=== PATIENT | male | born 1930 | race Caucasian/White ===

== ENCOUNTER 2016-12-12 18:43 | Observation (INO) ==
[2016-12-12] MEDS ORDERED: ASPIRIN PO STA (18:48)
--- NOTE | 2016-12-12 18:59 | EKG Report ---
Test Performed on : 12/12/2016 6:54:39 PM Test Reason : CHEST PAIN Blood Pressure : / mmHG Vent. Rate : 058 BPM Atrial Rate : 058 BPM P-R Int : 176 ms QRS Dur : 086 ms QT Int : 410 ms P-R-T Axes : 052 014 063 degrees QTc Int : 402 ms Sinus bradycardia. Otherwise normal ECG When compared with ECG of 16-FEB-2016 15:09, No significant change was found Unconfirmed Result
[2016-12-12 19:14] LABS: MANUAL DIFF NEEDED? NO
[2016-12-12 19:18] LABS: BASO% 0.9 % (0.0-0.8); EOS# 0.26 X1000 (0.0-0.7); EOS% 3.4 % (0.0-10.0); HEMATOCRIT 42.3 % (42.0-52.0); HEMOGLOBIN 14.9 g/dL (14.0-18.0); IMM GRAN# 0.01 X1000 (0.0-0.04); IMM GRAN% 0.1 % (0.0-0.5); LYMPH% 46.2 % (20.5-51.1); MCH 32.6 PG (27-31); MCHC 35.2 g/dL (33-37); MCV 92.6 FL (81-99); MONO# 0.87 X1000 (0.11-0.59); MONO% 11.5 % (1.7-9.3); MPV 10.4 FL (7.4-10.4); NEUT% 37.9 % (42.2-75.2); PLT 161 X1000 (130-400); RBC 4.57 XMIL (4.7-6.1)
--- NOTE | 2016-12-12 19:23 | ED EKG INTERP ---
This chart was entered by Paige Moffett Scribe, acting as scribe for Moiz Crabtree MD. EKG Interpretation - EKG Time of EKG reading by physician:: 18:54 EKG Read and Signed by:: Moiz Crabtree EKG Interpretation (*Must complete 3 of following elements*): Normal Rate: 58 Rhythm: sinus bradycardia [place]: normal QRS: normal [place] Interval: normal ST Wave: normal Attestation - Physician/ LANA Attestation Patient care was provided by Advanced Practice Provider:: No The physician spent face to face time with patient:: Yes Advanced Practice Provider documentation review:: Supervising physician onsite and consulted in the evaluation and care of this patient. The physician did have a face to face encounter with the patient. This chart was documented by the indicated scribe, (Paige Moffett Scribe) and accurately reflects the services I performed and decisions made by me, Moiz Crabtree MD, as attested by the provider's signature.
[2016-12-12 19:26] LABS: URINE CULTURE PL NEEDED? NO
[2016-12-12 19:33] LABS: URINE EPITHELIAL CELLS <10 /HPF (<10); URINE RBC <10 /HPF (<10); URINE WBC <10 /HPF (<10)
[2016-12-12 19:34] LABS: BILIRUBIN URINE NEGATIVE (NEGATIVE); BLOOD URINE NEGATIVE (NEGATIVE); CLARITY CLEAR (CLEAR); COLOR YELLOW; GLUCOSE URINE NEGATIVE (NEGATIVE); LEUKOCYTES URINE NEGATIVE (NEGATIVE); NITRITE URINE NEGATIVE (NEGATIVE); PROTEIN URINE NEGATIVE (NEGATIVE); URINE SOURCE CLEAN CATCH; UROBILINOGEN URINE NORMAL
[2016-12-12 19:38] LABS: INR 0.93 (0.86-1.15); PROTIME 13.2 Seconds (12.1-15.5)
[2016-12-12 19:39] LABS: PTT PL 30.2 Seconds (22.6-43.9)
[2016-12-12 19:50] LABS: AGAP 13; ALBUMIN 4.4 g/dL (3.5-5.0); ALKALINE PHOSPHATASE 75 U/L (32-122); BUN 14 mg/dL (8-22); CALCIUM 9.1 mg/dL (8.8-10.2); CHLORIDE 103 mmol/L (98-107); CK PROFILE 74 U/L (24-204); COSMO 276; GOT 22 U/L (10-34); GPT 23 U/L (10-44); MAGNESIUM 1.8 mg/dL (1.5-2.7); POTASSIUM 3.8 mmol/L (3.5-5.1); SODIUM 137 mmol/L (136-145); TCO2 21 mmol/L (25-35); TOTAL PROTEIN 7.4 g/dL (6.3-8.3)
--- NOTE | 2016-12-12 20:00 | Diag Imaging Result Doc PS360 ---
EXAM: CHEST-2 VIEWS HISTORY: chest pain TECHNIQUE: PA and lateral chest COMMENT: There is no evidence of acute cardiac or pulmonary disease. Compared to 02/16/2016 there has been no significant change in the appearance of the chest. IMPRESSION: Stable chest. Electronically signed by Salty Dias 12/12/2016 7:58 PM
[2016-12-12] MEDS ORDERED: MORPHINE IV PRN (20:39)
[2016-12-12] MEDS ORDERED: ZOFRAN IV PRN (20:39)
[2016-12-12] MEDS ORDERED: TYLENOL PO PRN (20:39)
--- NOTE | 2016-12-12 20:39 | PROVIDER DOCUMENTATION ---
HPI-Chest Pain - General Chief Complaint: Chest Pain Stated Complaint: CHEST PAINS Time Seen by Provider: 12/12/16 18:53 Source: patient, family Allergies/Adverse Reactions: Patient Allergies Allergy/AdvReac Type Severity Reaction Status Date / Time codeine [Codeine] Allergy Intermediate hyper Verified 02/16/16 12:46 Home Medications: Home Medication List Medication Instructions Recorded Confirmed Last Taken Type Ascorbic Acid [Vitamin C] 1,000 intl.units PO DAILY 06/17/12 02/16/16 05/14/14 08:00 History Aspirin 81 mg PO DAILY 06/17/12 02/16/16 05/14/14 08:00 History Atenolol [Tenormin] 12.5 mg PO DAILY 06/17/12 02/16/16 05/14/14 08:00 History Calcium Carbonate/Vit D3 [Caltrate 1 tab PO DAILY 06/17/12 02/16/16 05/14/14 08: 00 History 600 + D] Losartan [Cozaar] 50 mg PO DAILY 06/17/12 02/16/16 05/14/14 08:00 History Meloxicam 15 mg PO DAILY 06/17/12 02/16/16 05/14/14 08:00 History Multivitamin [Multi-Vitamin Daily] 1 tab PO DAILY 06/17/12 02/16/16 05/14/14 08: 00 History Omeprazole [Prilosec] 40 mg PO DAILY 06/17/12 02/16/16 05/14/14 08:00 History Vitamin E 400 intl.units PO DAILY 06/17/12 02/16/16 05/14/14 08:00 History Zinc [Zinc Chelated] 50 mg PO DAILY 06/17/12 02/16/16 05/14/14 08:00 History Fenofibrate [Tricor] 48 mg PO DAILY 06/21/12 02/16/16 05/14/14 08:00 History Simvastatin [Zocor] 20 mg PO DAILY 06/21/12 02/16/16 05/14/14 08:00 History Tramadol [Ultram] 50 mg PO Q4H PRN PRN #10 tablet 06/23/12 02/16/16 05/14/14 08: 00 Rx Hydrocodone/APAP 5 mg/325 mg 1 - 2 tab PO Q6H PRN PRN #18 tablet 05/14/14 Unknown Rx [Norden-5] Tamsulosin [Flomax] 0.4 mg PO QHS #14 capsule 05/14/14 02/16/16 Unknown Rx - History of Present Illness-CP Nature of Presenting Problem: pt presents after an episode of left-sided chest pain that started at approx 1830 today. He is feeling better now and denies any current cp. He had PCI back in the mid . Records show a normal gxt in 2016. No cough, fever, back pain, abd pain. Chest Pain Radiation: reports: no radiation Quality of Pain: reports: aching Severity in ED: severe Onset/Duration: 1-3 hours ago Timing: gone now Context/Activities at Onset: reports: none Modifying Factors: improves with: nothing Associated Symptoms: denies: abdominal pain, back pain, dizziness, fatigue, fever/chills, headache, nausea, rash, shortness of breath, syncope, vomiting, weakness Similar Symptoms Previously?: No Recently Seen Here or By Another Healthcare Provider: No Review of Systems - Adult - REVIEW OF SYSTEMS - ADULT Constitutional: reports: no symptoms reported Eyes: reports: no symptoms reported Ears, Nose, Mouth & Throat: reports: no symptoms reported Cardiovascular: reports: see HPI Respiratory: reports: no symptoms reported Gastrointestinal: reports: no symptoms reported Genitourinary: reports: no symptoms reported Musculoskeletal: reports: no symptoms reported Integumentary: reports: no symptoms reported Neurological: reports: no symptoms reported Psychiatric: reports: no symptoms reported Endocrine: reports: no symptoms reported Hematologic/Lymphatic: reports: no symptoms reported Allergic/Immunologic: reports: no symptoms reported All Other Systems: Reviewed and Negative Past History - Adult - PAST MEDICAL HISTORY-ADULT Review of Records: reports: Old Records Reviewed, Nursing Assessment Review, Medications Reviewed, Social history reviewed & non-contributory. Major Childhood Illnesses: reports: denies history Cardiovascular: reports: CAD, HTN Respiratory: reports: denies history Gastrointestinal: reports: denies history Obstetrical/Gynecological: reports: denies history Genitourinary: reports: kidney stones Musculoskeletal: reports: denies history Neurological: reports: denies history Endocrine/Immune: reports: denies history Other Conditions: reports: other cancer (prostate) - PRIOR SURGERIES/PROCEDURES Surgical/Procedure History: reports: appendectomy, cholecystectomy, cardiac stent, hernia repair, other (prostate, AAA) - IMMUNIZATION STATUS Childhood Immunizations: See Nurse Assessment Flu Vaccine: See Nurse Assessment - FAMILY HISTORY Family History: reviewed, not pertinent - SOCIAL HISTORY Smoking: denies Substance Use: none/never Alcohol Use Frequency: never Living Situation: family Physical Exam-General - PHYSICAL EXAM-ADULT Initial Vital Signs Reviewed: Yes - CONSTITUTIONAL General Appearance: appears well, alert, no apparent distress - EYES Eyes: PERRL/EOMI, pink conjunctivae - HEAD, EARS, NOSE, MOUTH & THROAT HENMT: normocephalic/atraumatic - NECK Neck: supple - RESPIRATORY Respiratory: chest non-tender, lungs clear, normal breath sounds - CARDIOVASCULAR Cardiovascular: normal peripheral pulses, regular rate, rhythm - GASTROINTESTINAL (ABDOMEN) Abdominal Exam: normal bowel sounds, non tender, soft - MUSCULOSKELETAL Back Exam: normal inspection Extremity: non-tender, normal gait, no calf tenderness Peripheral Pulses: radial (R): 2+, radial (L): 2+ - SKIN Integumentary: normal color, normal turgor, warm/dry - NEUROLOGIC Neurologic: grossly normal - PSYCHIATRIC Psych/Mental Status: normal mood/affect, oriented x 3 Progress - PLAN OF CARE/RESULTS Progress/Plan/Lab Results: Vital Signs - 8 hr 12/12/16 18:46 12/12/16 18:59 12/12/16 20:00 Temperature 98 F Pulse Rate 55 L 59 L 59 L Respiratory Rate 18 20 14 Blood Pressure 157/65 180/116 144/81 O2 Sat by Pulse Oximetry 95 97 94 L 12/12/16 20:40 12/12/16 21:10 Temperature Pulse Rate 52 L 60 Respiratory Rate 20 Blood Pressure 153/115 O2 Sat by Pulse Oximetry 94 L Laboratory Results - last 24 hr 12/12/16 12/12/16 12/12/16 18:40 19:10 19:10 WBC RBC Hgb Hct MCV MCH MCHC RDW Std Deviation Plt Count MPV Immature Gran % (Auto) Neut % (Auto) Lymph % (Auto) [place] % (Auto) Eos % (Auto) Baso % (Auto) Immature Gran # (Auto) Neut # (Auto) Lymph # (Auto) [place] # (Auto) Eos # (Auto) Baso # (Auto) PT INR APTT (Factor Assay) Sodium 137 Potassium 3.8 Chloride 103 Carbon Dioxide 21 L Anion Gap 13 BUN 14 Creatinine 1.1 Estimated GFR/1.73 m2 > 60 BUN/Creatinine Ratio 13 Glucose 125 H Calculated Osmolality 276 Calcium 9.1 Magnesium 1.8 Total Bilirubin 0.60 AST 22 ALT 23 Alkaline Phosphatase 75 Creatine Kinase 74 Troponin T < 0.010 [id number] Pept Total Protein 7.4 Albumin 4.4 Globulin 3.0 Albumin/Globulin Ratio 1.0 Urine Source Cancelled Urine Color Cancelled Urine Clarity Cancelled Urine pH Cancelled Ur Specific [place] Cancelled Urine Protein Cancelled Urine Ketones Cancelled Urine Blood Cancelled Urine Nitrite Cancelled Urine Bilirubin Cancelled Urine Urobilinogen Cancelled Urine Microscopic RBC Cancelled Urine WBC Cancelled Urine Microscopic WBC Cancelled Ur Epithelial Cells Cancelled Urine Crystals Cancelled Small Round Cells Cancelled Urine Bacteria Cancelled Urine Casts Cancelled Urine Yeast Cancelled Urine Glucose Cancelled 12/12/16 12/12/16 12/12/16 19:10 19:10 19:10 WBC 7.58 RBC 4.57 L Hgb 14.9 Hct 42.3 MCV 92.6 MCH 32.6 H MCHC 35.2 RDW Std Deviation 12.9 Plt Count 161 MPV 10.4 Immature Gran % (Auto) 0.1 Neut % (Auto) 37.9 L Lymph % (Auto) 46.2 [place] % (Auto) 11.5 H Eos % (Auto) 3.4 Baso % (Auto) 0.9 H Immature Gran # (Auto) 0.01 Neut # (Auto) 2.87 Lymph # (Auto) 3.50 H [place] # (Auto) 0.87 H Eos # (Auto) 0.26 Baso # (Auto) 0.07 PT 13.2 INR 0.93 APTT (Factor Assay) 30.2 Sodium Potassium Chloride Carbon Dioxide Anion Gap BUN Creatinine Estimated GFR/1.73 m2 BUN/Creatinine Ratio Glucose Calculated Osmolality Calcium Magnesium Total Bilirubin AST ALT Alkaline Phosphatase Creatine Kinase Troponin T [id number]-Mynhvxubcvw Pept 109 Total Protein Albumin Globulin Albumin/Globulin Ratio Urine Source Urine Color Urine Clarity Urine pH Ur Specific [place] Urine Protein Urine Ketones Urine Blood Urine Nitrite Urine Bilirubin Urine Urobilinogen Urine Microscopic RBC Urine WBC Urine Microscopic WBC Ur Epithelial Cells Urine Crystals Small Round Cells Urine Bacteria Urine Casts Urine Yeast Urine Glucose 12/12/16 12/12/16 12/12/16 19:15 20:57 20:57 WBC RBC Hgb Hct MCV MCH MCHC RDW Std Deviation Plt Count MPV Immature Gran % (Auto) Neut % (Auto) Lymph % (Auto) [place] % (Auto) Eos % (Auto) Baso % (Auto) Immature Gran # (Auto) Neut # (Auto) Lymph # (Auto) [place] # (Auto) Eos # (Auto) Baso # (Auto) PT INR APTT (Factor Assay) Sodium Potassium Chloride Carbon Dioxide Anion Gap BUN Creatinine Estimated GFR/1.73 m2 BUN/Creatinine Ratio Glucose Calculated Osmolality Calcium Magnesium Total Bilirubin AST ALT Alkaline Phosphatase Creatine Kinase 66 Troponin T < 0.010 [id number]-Zofvjwmtquo Pept Total Protein Albumin Globulin Albumin/Globulin Ratio Urine Source CLEAN CATCH Urine Color YELLOW Urine Clarity CLEAR Urine pH 6.0 Ur Specific [place] 1.020 Urine Protein NEGATIVE Urine Ketones NEGATIVE Urine Blood NEGATIVE Urine Nitrite NEGATIVE Urine Bilirubin NEGATIVE Urine Urobilinogen NORMAL Urine Microscopic RBC <10 Urine WBC NEGATIVE Urine Microscopic WBC <10 Ur Epithelial Cells <10 Urine Crystals Small Round Cells Urine Bacteria Urine Casts Urine Yeast Urine Glucose NEGATIVE Orders Category Date Time Status Admit - [facility] Routine AdmDCTranf 12/12/16 20:39 Ordered Activity - Up Ad Sharri ORDERED Care 12/12/16 20:39 Active Call Admitting on Arrival AT ADMISSION Care 12/12/16 20:39 Active Cardiac Monitoring DIRECTED Care 12/12/16 18:49 Completed Resuscitation Status Routine Care 12/12/16 20:39 Ordered Saline Loc DIRECTED Care 12/12/16 20:39 Active Saline Loc NOW Care 12/12/16 18:49 Completed Vital Signs Order ROUTINE Care 12/12/16 20:39 Active Z-Document. for Tele Applied ORDERED Care 12/12/16 20:40 Active CHEST-2 VIEWS [RAD] Stat Exams 12/12/16 19:04 Completed CBC WITH ELECTRONIC DIFF [HEME] Stat Lab 12/12/16 19:10 Completed CK PROFILE [SP CHEM] Stat Lab 12/12/16 19:10 Completed CK PROFILE [SP CHEM] Timed Lab 12/12/16 20:57 Completed CK PROFILE [SP CHEM] Timed Lab 12/13/16 00:46 Ordered CK PROFILE [SP CHEM] Timed Lab 12/13/16 03:46 Ordered COMPREHENSIVE METABOLIC PANEL [CHEM] Stat Lab 12/12/16 19:10 Completed MAGNESIUM [CHEM] Stat Lab 12/12/16 19:10 Completed PRO B-NATRIURETIC PEPTIDE Stat Lab 12/12/16 19:10 Completed PROTIME WITH INR PL [COAG] Stat Lab 12/12/16 19:[address] [COAG] Stat Lab 12/12/16 19:10 Completed TROPONIN T Stat Lab 12/12/16 19:10 Completed TROPONIN T Timed Lab 12/12/16 20:57 Completed TROPONIN T Timed Lab 12/13/16 00:46 Ordered TROPONIN T Timed Lab 12/13/16 03:46 Ordered UA NIMS W/REFLEX CULT PL [URINALYSIS] Routine Lab 12/12/16 19:15 Completed Acetaminophen [Tylenol] Med 12/12/16 20:39 Active 650 mg PO Q6H PRN PRN Aspirin Med 12/12/16 18:48 Discontinued 325 mg PO STAT STA Morphine Med 12/12/16 20:39 Active 2 mg IV Q2H PRN PRN Ondansetron [Zofran] Med 12/12/16 20:39 Active 4 mg IV Q4H PRN PRN Oxygen Device Routine Oth 12/12/16 20:40 Active Telemetry [OM.EQ] Routine Oth 12/12/16 20:39 Active EKG [EKG] Stat Ther 12/12/16 18:49 Draft Transfer/Admit Order [TRANSFER] Routine Transfer 12/12/16 20:53 Completed Result Diagrams: 12/12/16 19:10 12/12/16 19:10 - XRAY 1 XRAY Study: Chest Impression: See EMR Report (NAF) - CONSULTS/PCP/HOSPITALIST Notification #1 *Consult/PCP/Hospitalist*: Dr. Smiley Time Discussed: 20:38 Reason/Comments: chest pain Consult Disposition: Admit Departure - Departure Date of Disposition Decision: 12/12/16 Time of Disposition Decision: 20:38 DIAGNOSIS: Chest pain Qualifiers: Chest pain type: unspecified Qualified Code(s): R07.9 - Chest pain, unspecified CAD (coronary artery disease) Qualifiers: Coronary Disease-Associated Artery/Lesion type: unspecified vessel or lesion type [place] vs. transplanted heart: [place] heart Associated angina: angina presence unspecified Qualified Code(s): I25.10 - Atherosclerotic heart disease of [place] coronary artery without angina pectoris Disposition: ADMITTED INPATIENT 09 Certified Medical Emergency: Emergent Condition: Stable - Critical Care Note This patient required my direct & personal management of CC.: No Attestation - Physician/ LANA Attestation Patient care was provided by Advanced Practice Provider:: Yes Advanced Practice Provider:: Iftikhar Fabian Advanced Practice Provider documentation review:: The Mid-level provider documentation, treatment plan and medical decision making was reviewed by the physician who agrees with all treatment and medical decision making by the MLP. The physician spent face to face time with patient:: No Advanced Practice Provider documentation review:: Supervising physician onsite and consulted in the evaluation and care of this patient. The physician did not have a face to face encounter with the patient.
[2016-12-13] MEDS ORDERED: PNEUMOVAX 23 IM ONE (05:56)
[2016-12-13] MEDS ORDERED: MORPHINE IV PRN (06:42)
[2016-12-13] MEDS ORDERED: ZOFRAN IV PRN (09:36)
[2016-12-13] MEDS ORDERED: TYLENOL PO PRN (09:36)
[2016-12-13] MEDS ORDERED: NEXIUM PO SCH (09:45)
[2016-12-13] MEDS ORDERED: CARAFATE PO SCH (11:00)
[2016-12-13 12:47] VITALS: BP 109/89
--- NOTE | 2016-12-13 14:05 | HISTORY AND PHYSICAL ---
CHIEF COMPLAINT: Chest pain. HISTORY OF PRESENT ILLNESS: This is an 86-year-old male who presented to the emergency room complaining of left-sided chest pain that started about 3 hours prior to coming to the emergency room. On admission to the ER he denies any chest pain. He described this as an aching type pain that he stated it was severe that relieved spontaneously. He denied any radiation, any alleviating or exacerbating factors. He did not have shortness of breath, dizziness, palpitations, nausea with this chest pain. He does have a history of coronary artery disease having a PCI back in the mid . He did have a normal Lexiscan in October 2015 with EF of 61% as well as a echocardiogram that revealed normal systolic function with no significant valvular abnormalities, EF of 61%. He was noted to have troponins were negative with an EKG reportedly being sinus nahed at a rate of 58, he was admitted for further evaluation and treatment. PAST MEDICAL HISTORY: Hypertension, CAD, prostate cancer, abdominal aortic aneurysm, kidney stones, PAST SURGICAL HISTORY: He has prostate surgery, PCI and AAA repair and herniated disk in his neck, appendectomy, cholecystectomy, cataract surgery bilateral. SOCIAL HISTORY: He denies alcohol, tobacco, or illicit drug use. ALLERGIES: Codeine which causes him to be hyper. HOME MEDICATIONS: A list will be obtained. REVIEW OF SYSTEMS: A 14 point review of systems is discussed with the patient with pertinent positives stated in HPI. He denied palpitations, dizziness, syncope, nausea, vomiting, diarrhea, constipation, black or bloody vomitus, black or bloody stools, shortness of breath, dyspnea on exertion, PND, orthopnea, any hematuria, dysuria frequency, urgency. No fever, chills. PHYSICAL EXAMINATION: GENERAL: This is an 86-year-old gentleman who is sitting in the bed in no distress. VITAL SIGNS: Blood pressure is 139/73 with a heart rate of 62, respirations are 18, temperature is 97.4 degrees with room air saturations 96-98%. HEENT: Head is normocephalic, atraumatic. Pupils equal, round, react to light. EOMs are intact. Sclerae anicteric. Mucous membranes are moist. NECK: Supple. Trachea midline. CARDIOVASCULAR: Regular rate and rhythm, S1, S2 appreciated. PULMONARY: Breath sounds are clear with no increased work of breathing noted. Chest does rise and fall symmetrically with respiration. GASTROINTESTINAL: Abdomen is soft, nontender, nondistended with bowel sounds in all 4 quadrants. BACK: No CVAT, no spine tenderness. MUSCULOSKELETAL: Good range of motion joints. NEUROLOGIC: He is alert and oriented x3 with cranial nerves 2-12 grossly intact. EXTREMITIES: No clubbing, cyanosis, or edema. Calves are nontender. Pulses are palpable x4. SKIN: Warm and dry with good turgor. DIAGNOSTICS: WBC is 7.5 with hemoglobin 14.9, hematocrit 42.3 and platelets of 161,000. Sodium is 137, potassium 3.8, BUN 14, creatinine 1.1 with a glucose of 125. Troponins are negative on multiple occasions. Urinalysis is essentially negative. EKGs per ER MD read sinus nahed at a rate of 58. Chest x-ray revealed no evidence of acute cardiac or pulmonary disease. ASSESSMENT AND PLAN: 1. Chest pain resolved. 2. History of coronary artery disease. 3. Hypertension. 4. Deep vein thrombosis prophylaxis. 5. Gastrointestinal prophylaxis. He will be admitted to the hospital. Placed on telemetry. Will continue to trend troponins. Will identify his home medications and continue as appropriate. We will add Nexium to his regimen as well as Carafate a.c. and at bedtime. Further treatments pending hospital course. Dictated by HOLLI Green for Jenaro Smiley MD cc: HOLLI Green MD
--- NOTE | 2016-12-14 20:22 | DISCHARGE SUMMARY ---
ADMISSION DATE: 12/12/2016 DISCHARGE DATE: 12/13/2016 DIAGNOSES: 1. Chest pain, resolved. 2. History of coronary artery disease. 3. Gastroesophageal reflux disease. 4. Hypertension. DIAGNOSTICS: 12/12/2016 chest x-ray revealed no evidence of acute cardiac or pulmonary disease. HOSPITAL COURSE: Mr. Pavon presented to the emergency room complaining of left-sided chest pain that came on about 3 hours prior to coming to the ER. He did state that it was severe, it did relieve spontaneously and it has not returned. He did not have any accompanying symptoms, any exacerbating or alleviating symptoms. He does have a history of CAD, having a PCI in the 90s. He did have an essentially normal Lexiscan as well as echocardiogram in 10/2015 with EF of 61%. He was ruled out by troponins. He was noted to be bradycardic at times through the hospitalization. On further review with the patient prior to discharge he did state that he has had increase in reflux symptoms, having increased belching, increased burning and increased "wet burps." We did start Carafate as well as Nexium during the hospitalization and he will be given prescriptions. DISCHARGE PHYSICAL EXAMINATION: Cardiovascular: Regular rate and rhythm S1, S2 appreciated. Pulmonary: Breath sounds are clear. No increased work of breathing noted. Gastrointestinal: Abdomen was soft, nontender, nondistended with bowel sounds in all 4 quadrants. Neurologic: Alert and oriented x 3 with cranial nerves 2-12 grossly intact. Extremities: No clubbing, cyanosis, or edema. Calves nontender. Pulses palpable x 4. Discharge vital signs: Blood pressure is 109/89 with a heart rate of 62, respirations 18, temperature 97.4 degrees with room air saturations 98%. DISCHARGE MEDICATIONS: Carafate 1 g a.c. and at bedtime, Nexium 40 mg daily. The patient's home medications were never verified. Therefore, we did tell the patient to take his home medications as per prehospitalization as Dr. Castro has prescribed. DISCHARGE FOLLOWUP: He needs to follow up with Dr. Castro this week so that he can review events and decide if he needs further workup either cardiac or GI. The patient as well as were instructed to return to the emergency room for any recurrence of chest pain, chest burning, chest pressure, palpitations, dizziness, syncope, shortness of breath, any weakness or any questions or concerns that he may have. He is being discharged home in stable condition with family members. This is a greater than 30 minute discharge. Dictated by HOLLI Green for Jenaro Smiley MD cc: HOLLI Green MD
== END 2016-12-13 15:40 | disposition home or self-care (01) ==
LOC: P.ED 18:43 → P.MEDSURG 18:43
PROVIDERS: ATTEND Family Medicine